=== PATIENT | female | born 1980 | race Caucasian/White ===

== ENCOUNTER 2017-01-31 00:01 | Emergency (ER) | payer OTHER ==
--- NOTE | ~2017-01-31 | CR72 ---
[facility] A Service of [facility] RADIOLOGY TEXT RESULTS PATIENT: ELISE MURILLO LOCATION: [facility] : [birth year] UNIT #: [id number] AGE: [address]: Natalya Anderson APRN SEX: F ORDER DR: [id number] [facility] [address] [place], [place] [address] [id number] MR#: [id number] Acc #: [id number] NAME: ELISE MURILLO : 1980 SEX: F STUDY DATE/TIME: 01/31/2017 2:15 UNIT: [facility] ROOM: STUDY DESCRIPTION: CR Chest Single View Portable Attending Physician: Natalya Anderson A.P.R.N. Ordering Physician: Natalya Anderson A.P.R.N. Primary Care Physician: Primary Care Physician No MEDICAL IMAGING REPORT This report is preliminary unless electronic signature is present EXAM Portable chest HISTORY Chest pain, abdominal pain onset today. History of asthma. COMPARISON 01/08/2014 FINDINGS A single AP portable view of the chest shows both lungs to be clear. The heart is normal in size. The mediastinal contour is normal. No significant bone abnormalities are seen. IMPRESSION Normal portable chest. Dictated by... Jan Petersen M.D. THIS IS AN ELECTRONICALLY VERIFIED REPORT Jan Petersen M.D. at 01/31/2017 5:18 AM TIFFANIE/juan alberto TD: 01/31/2017 04:54 JOB #: [id number] MEDICAL IMAGING REPORT Page 1 of 1 COPY
--- NOTE | ~2017-01-31 | EKG ---
PATIENT: ELISE MURILLO UNIT #: [id number] Ventricular Rate: 128 BPM Atrial Rate: 128 BPM P-R Interval: 138 ms QRS Duration: 86 ms Q-T Interval: 308 ms QTC Calculation(Bezet): 449 ms P Goshen: 68 degrees Calculated R Goshen: 78 degrees Calculated T Goshen: 5 degrees Diagnosis Line: Sinus tachycardia Diagnosis Line: Minimal voltage criteria for LVH, may be normal Diagnosis Line: variant Diagnosis Line: Nonspecific ST abnormality Diagnosis Line: Abnormal ECG Diagnosis Line: No previous ECGs available Diagnosis Line: Confirmed by ZUNILDA MORENO MD ([id number]) on 01/31/2017 Diagnosis Line: 8:08:42 PM INTERPRETING MD: TIFFANIE HOLM
[~2017-01-31 00:01] MED LIST: ADVAIR 250-501 EACH INH; ALBUTEROL MININEB NEB; ALBUTEROL17 G1 IH; AMOXICILLIN500 M1 PO; BACTRIM DS TABL1 TA1 PO; CALCIUM 500 + D1 TAB PO; CERTAGEN PO; CLONIDINE HCL0.1 MG PO; DOXYCYCLINE150 MG PO; FEOSOL PO; FIORICET 50-321 EACH PO; FLEXERIL PO; FLEXERIL10 MG PO; FOLIC ACID1 MG PO; IBUPROFEN800 MG PO; KEFLEX PO; KEFLEX500 MG PO; KETOPROFEN PO; LIDOCAINE HC20 MG/M1 MM; LORTAB 10/500 T1 TAB PO; LORTAB 5/500 TA1 TA1 PO; LORTAB 7.5-5001 TAB PO; MOBIC PO; MULTI-VITAMIN1 EAC1 PO; NAPROXEN PO; PHENERGAN12.5 MG PO; PREDNISONE PO; PRENATAL VITAMI1 TA3 PO; PYRIDIUM PO; RISPERIDONE PO; ROBITUSSIN A-C-S1 ML PO; THIAMINE HCL100 M1 PO; TYLENOL #3 PO; TYLOX1 CAP 5/50 PO; VISTARIL PO; ZITHROMAX1 G/PKT PO; ZOLOFT PO; ZYPREXA PO
[2017-01-31 01:03] LABS: BASOPHIL# 0.1 X10e3 (0-0.3); BASOPHIL% 0.4 % (0-2.5); EOSINOPHIL# 0.1 X10e3 (0-0.7); EOSINOPHIL% 0.3 % (0.0-7.0); HEMATOCRIT 50.1 % (35.0-45.0); HEMOGLOBIN 16.8 gm/dL (12.0-16.0); LYMPHOCYTE# 1.2 X10e3 (1.0-3.5); LYMPHOCYTE% 6.5 % (17.0-45.0); MEAN CELL VOLUME 93.3 FL (83-96); MEAN CORPUSCULAR HEMOGLOBIN 31.2 PG (28-34); MEAN CORPUSCULAR HGB CONC 33.4 g/dL (30-36); MEAN PLATELET VOLUME 8.8 FL (6.5-11.5); MONOCYTE# 1.6 X10e3 (0-1.0); MONOCYTE% 9.2 % (3.0-12.0); NEUTROPHIL# 14.9 X10e3 (1.5-7.1); NEUTROPHIL% 83.6 % (40-75); PLATELET COUNT 286 X10e3 (140-420); RED BLOOD COUNT 5.37 X10e (3.90-5.30); RED CELL DISTRIBUTION WIDTH 12.9 % (11.0-15.5); WHITE BLOOD COUNT 17.8 X10e3 (4.0-10.5)
[2017-01-31 01:07] LABS: DIFF IND YES
[2017-01-31 01:25] LABS: ALBUMIN SERUM 5.3 g/dL (3.5-5.0); ALKALINE PHOSPHATASE 54 U/L (32-92); ALT (SGPT) 198 U/L (10-40); AMYLASE 8 U/L (0-46); AST (SGOT) 146 U/L (10-42); BILIRUBIN, DIRECT 0.2 mg/dL (0.0-0.2); BILIRUBIN,INDIRECT 0.8 mg/dL (0.0-0.9); BLOOD UREA NITROGEN 16 mg/dL (9-23); CALCIUM SERUM 9.6 mg/dL (8.4-10.2); CARBON DIOXIDE 24 mmol/L (22-31); CHLORIDE 106 mmol/L (100-111); CPK (CREATINE PHOSPHOKINASE) 796 IU/L (26-140); CREATININE SERUM 1.3 mg/dL (0.6-1.4); GLOM FILT RATE Estimated 53.1 mL/min (>60); GLUCOSE FASTING 135 mg/dL (70-110); LIPASE 11 U/L (22-51); PROTEIN TOTAL SERUM 8.9 g/dL (6.0-8.3); SODIUM 143 mmol/L (135-145)
[2017-01-31 01:26] LABS: PLATELET ESTIMATE NORMAL (NORMAL)
[2017-01-31 01:27] LABS: ALCOHOL BLOOD <5 mg/dL (0); POTASSIUM 2.7 mmol/L (3.5-5.1)
[2017-01-31 01:59] LABS: POC - CKMB 10.9 ng/mL (0.0-7.9); POC - TROPONIN <0.05 ng/mL (<=0.05)
[2017-01-31 02:14] LABS: URINE SOURCE CLEAN CATCH
[2017-01-31 02:16] LABS: URINE APPEARANCE TURBID; URINE BLOOD 1+ (NEG); URINE COLOR DK YELLOW; URINE GLUCOSE NEG (NEG); URINE KETONE 2+ (NEG); URINE LEUKOCYTE ESTERASE NEG (NEG); URINE NITRATE NEG (NEG); URINE PROTEIN 2+ (NEG)
[2017-01-31 02:18] LABS: CULTURE INDICATED? YES; URINE BACTERIA AUWI NEG (NEGATIVE); URINE SQUAMOUS EPITHELIAL CELL MANY /[HPF]; UWBCS1 AUWI 25-50 (0-5)
[2017-01-31 02:31] LABS: U HYALINE CASTS AUWI 50-100 /[LPF]; URINE BILIRUBIN NEG (NEG)
[2017-01-31 02:33] LABS: URINE RED BLOOD CELL CAST 0-2 /[HPF]
[2017-01-31 02:39] LABS: AMPHETAMINE POS (NEG); BARBITURATES NEG (NEG); BENZODIAZEPINES NEG (NEG); COCAINE NEG (NEG); MARIJUANA NEG (NEG); OPIATES NEG (NEG); TRICYCLIC ANTIDEPRESSANTS NEG (NEG); U METHADONE NEG (NEG)
[2017-01-31 02:44] LABS: POC - CKMB 6.5 ng/mL (0.0-7.9); POC - TROPONIN <0.05 ng/mL (<=0.05)
== END 2017-01-31 08:16 | disposition home or self-care (01) ==
LOC: CED 00:01
PROVIDERS: Nurse Practitioner
DX: E87.6 Hypokalemia (principal); F15.10 Other stimulant abuse, uncomplicated; J45.909 Unspecified asthma, uncomplicated; Z90.710 Acquired absence of both cervix and uterus; F17.210 Nicotine dependence, cigarettes, uncomplicated
CPT/HCPCS: 71010; 80048; 80076; 80307; 81003; 82150; 82550; 82553; 83690; 84484; 85025; 87086; 93005; 96361; 96374; 96375; 99284; G0480; J2060; J2405

== ENCOUNTER 2017-02-22 00:14 | Emergency (ER) | payer OTHER ==
[2017-02-22 01:07] LABS: URINE SOURCE CLEAN CATCH
[2017-02-22 01:09] LABS: URINE APPEARANCE CLOUDY; URINE COLOR DK YELLOW; URINE LEUKOCYTE ESTERASE 2+ (NEG); URINE NITRATE POS (NEG); URINE SPECIFIC GRAVITY 1.027 (1.003-1.035)
[2017-02-22 01:10] LABS: URINE BILIRUBIN NEG (NEG); URINE GLUCOSE NEG (NEG); URINE KETONE TRACE (NEG); URINE PROTEIN 1+ (NEG)
[2017-02-22 01:11] LABS: URINE BLOOD NEG (NEG); URINE ICTOTEST NEG (NEG)
[2017-02-22 01:12] LABS: CULTURE INDICATED? YES; URINE BACTERIA AUWI 4+ (NEGATIVE); UWBCS1 AUWI 50-100 (0-5)
[2017-02-22 01:13] LABS: URINE SQUAMOUS EPITHELIAL CELL MANY /[HPF]
== END 2017-02-22 02:20 | disposition home or self-care (01) ==
LOC: CED 00:14
DX: N39.0 Urinary tract infection, site not specified (principal); Z79.899 Other long term (current) drug therapy
CPT/HCPCS: 81003; 87086; 87088; 87186; 99282; 99283

== ENCOUNTER 2017-03-27 09:42 | Inpatient (IN) | payer OTHER ==
--- NOTE | ~2017-03-27 | PN ---
Unit #: [id number] #: [id number] Patient: ELISE MURILLO [id number] [facility] [address] [place] [address] [id number] I MR#: [id number] NAME: ELISE MURILLO. ROOM: [facility] Age: 36 Sex: F Admission Date: 03/27/2017 : 1980 Attending Physician: Josefina Staples M.D. Admitting Physician: Josefina Staples M.D. Primary Care Physician: Juan Miguel Moses PROGRESS NOTES DATE 03/31/2017 DISCUSSION Ms. Murillo is a 36-year-old white female who was seen today and chart was reviewed and case was discussed with the staff. She has been anxious, withdrawn, depressed and rather seclusive to herself and has not been opening up socializing or interacting very much. Meanwhile, she has been taking the medications and tolerating them fairly well with no reported side effects. MENTAL STATUS EXAMINATION Young white female who was casually dressed with fair personal hygiene, appears to be in no acute distress or discomfort. She was awake and alert on interaction with intact orientation. Her mood was anxious with congruent affect. She denies any suicidal or homicidal ideations. Her insight and judgement remains slightly impaired. TREATMENT PLAN 1. We will continue her on her current medications and treatment protocol. We will monitor her response to the medication and make further adjustments as needed. 2. We will continue to follow up. Dictated by... Juan Miguel Saldana/kathy TD: 04/01/2017 03:50 JOB #: [id number] Unit #: [id number] #: [id number] Patient: ELISE MURILLO CARLIIZZY PROGRESS NOTES Page 1 of 1 X Josefina Staples MD PROGRESS NOTE
--- NOTE | ~2017-03-27 | DS ---
Unit #: [id number] #: [id number] Patient: ELISE MURILLO [id number] [facility] [address] [place] [address] [id number] I MR#: [id number] NAME: ELISE MURILLO. ROOM: P177 Age: 36 Sex: F Admission Date: 03/27/2017 : 1980 Discharge Date: 04/01/2017 Attending Physician: Josefina Staples M.D. Primary Care Physician: Katia Lucero M.D. DISCHARGE SUMMARY IDENTIFYING DATA Ms. Velazco is a 36-year-old white female who is a resident of [place], [place] and was brought to the hospital accompanied by her ex-. DISCHARGE DIAGNOSES Psychiatric: Major depressive disorder, recurrent, moderate, without psychotic features; alcohol abuse, moderate. Medical: Hepatitis C, history of nonactive of methicillin-resistant Staphylococcus aureus, and asthma. Stressors: Mild psychosocial stressors. HISTORY OF PRESENT ILLNESS Please see initial psychiatric evaluation for details. PAST PSYCHIATRIC HISTORY Please see initial psychiatric evaluation for details. PAST MEDICAL HISTORY Please see initial psychiatric evaluation for details. HOSPITAL COURSE The patient [facility] and was oriented to the hospital environment. Routine p.r.n. medications were initiated, and she was started back on her home medications. Medications were adjusted and detox protocol was initiated, and she was also started on alcohol detox protocol, and Effexor and BuSpar were initiated to help with depressive symptoms and she was closely monitored. She was taking the medications regularly and was tolerating them fairly well and was able to show a decent therapeutic response with improvement in depression and anxiety, and as such, it was decided that she will be discharged home and will continue treatment on an outpatient basis. DISCHARGE MEDICATIONS Effexor XR 75 mg a day for depression and BuSpar 10 mg b.i.d. for anxiety. DISCHARGE CONDITION Stable. PROGNOSIS Fair. Unit #: [id number] #: [id number] Patient: ELISE MURILLO Dictated by... Josefina Staples M.D. IAA/modl TD: 04/01/2017 06:54 JOB #: [id number] DISCHARGE SUMMARY Page 1 of 1 X Josefina Satples MD DISCHARGE SUMMARY
--- NOTE | ~2017-03-27 | PA ---
Unit #: [id number] #: [id number] Patient: ELISE MURILLO [id number] [facility] [address] [place] [address] [id number] I MR#: [id number] NAME: ELISE MURILLO. ROOM: P177 Age: 36 Sex: F Admission Date: 03/27/2017 : 1980 Date of Assessment: Attending Physician: Josefina Staples M.D. Admitting Physician: Josefina Staples M.D. Primary Care Physician: Katia Lucero M.D. PSYCHIATRIC ASSESSMENT DATE OF SERVICE 03/27/2017. IDENTIFYING DATA Ms. Murillo is a 36-year-old, , white female, who is a resident of [place], [place] and was brought to the hospital accompanied by her ex-. CHIEF COMPLAINT "I'm not just depressed, I'm missing my kids." HISTORY OF PRESENT ILLNESS Ms. Murillo is a 36-year-old white female, who was brought to the hospital accompanied by her ex-. Upon presentation, the patient reports increasing depression, anxiety, missing her children, feelings of hopelessness and "I've 7 kids, I'm homeless now, I sleep in my truck and I've had about 4-1/2 beers last night, which is about usual for me." The patient reports she receives disability check for her mental health issues and is homeless and has been homeless on and off for the last year and was living with an ex, but feels that she may lose that placement due to her drinking behavior. The patient reports significant grieving due to the loss of her children, not being able to get the custody and reports having 7 kids who are not in her custody and she is on a fixed income, has hepatitis C, and history of MRSA and has a lot of stressors leading to increasing depression, feelings of hopelessness and helplessness, and suicidal ideations. SUBSTANCE ABUSE HISTORY The patient reports history of alcohol, cannabis, cocaine, opioids, and methamphetamine abuse, and currently she reports alcohol to be her drug of choice. PAST PSYCHIATRIC HISTORY The patient reports history of inpatient chemical dependency [facility]. Review of the medical records indicate currently she is not active in any treatment program, is not seeing a psychiatrist, and not taking any psychotropic medications. PAST MEDICAL HISTORY Significant for hepatitis C, asthma, nonactive MRSA. ALLERGIES No known medication allergies. Unit #: [id number] #: [id number] Patient: ELISE MURILLO PERSONAL AND SOCIAL HISTORY A 36-year-old white female, who reports that she is , unemployed and essentially homeless and has poor social support system. MENTAL STATUS EXAMINATION Young white female, who was casually dressed with fair personal hygiene, appears to be in no acute distress or discomfort. She was awake and alert on interaction with intact orientation. Her mood was anxious and depressed with a congruent affect. Her speech was slow and restricted in content. Her thought processes were disorganized with some looseness of associations and flight of ideas and suicidal ideations. Her insight and judgment remain significantly impaired. DIAGNOSTIC IMPRESSION Psychiatric: Major depressive disorder, recurrent, moderate, without psychotic features; alcohol abuse, moderate. Medical: Hepatitis C, history of nonactive methicillin-resistant Staphylococcus aureus, asthma. Stressors: Moderate psychosocial stressors. TREATMENT PLAN 1. The patient has presented with a history of mood disorder and substance abuse and has been decompensating and will need inpatient hospitalization for detoxification, safety, and stabilization. We will start her back on her home medications and we will monitor response and make further adjustments as needed. 2. Supportive therapy was provided to the patient. 3. Safe, structured, and nourishing environment will be provided. ESTIMATED LENGTH OF STAY 4 to 5 days. ABILITY TO HELP SELF Limited. WILLINGNESS TO HELP SELF The patient appears to be willing to help self. STRENGTHS 1. Communicative. 2. Cooperative. PROBLEMS 1. Chronic dysphoric symptoms. 2. Chronic chemical dependency. 3. Poor social support system. DISCHARGE CRITERIA This will be contingent upon the patient's ability to go through detox without having any significant withdrawal symptoms and her ability to stay safe to herself, particularly after discharge from the hospital. Dictated by... Unit #: [id number] #: [id number] Patient: ELISE MURILLO Juan Miguel Saldana/geovany TD: 03/28/2017 08:15 JOB #: [id number] PSYCHIATRIC ASSESSMENT Page 1 of 1 X Josefina Staples MD PSYCHIATRIC ASSESSMENT
--- NOTE | ~2017-03-27 | PN ---
Unit #: [id number] #: [id number] Patient: ELISE MURILLO [id number] [facility] [address] [place] [address] [id number] MR#: [id number] NAME: ELISE MURILLO. ROOM: [facility] Age: 36 Sex: F Admission Date: 03/27/2017 : 1980 Attending Physician: Josefina Staples M.D. Admitting Physician: Josefina Staples M.D. Primary Care Physician: Juan Miguel Moses PROGRESS NOTES DATE 03/29/2017 DISCUSSION Ms. Murillo is a 56-year-old white female with substance abuse and mood disorder who was seen today and chart was reviewed and case was discussed with the staff. She has been anxious, withdrawn and rather seclusive to herself. Meanwhile, she has been cooperative with treatment recommendations as she has been taking the medications and tolerating them fairly well with no reported side effects. MENTAL STATUS EXAMINATION Young white female who was casually dressed with fair personal hygiene, appears to be in acute distress or discomfort. She was awake and alert with impaired attention and concentration. Her mood was anxious with congruent affect. She denies any suicidal or homicidal ideations. Her insight and judgement remains slightly impaired. TREATMENT PLAN 1. We will continue her on her current medications and treatment protocol. We will monitor her response to the medication and make further adjustments as needed. 2. We will continue to follow up. Dictated by... Juan Miguel Saldana/kathy TD: 03/30/2017 02:02 JOB #: [id number] Unit #: [id number] #: [id number] Patient: ELISE MURILLO OLEG PROGRESS NOTES Page 1 of 1 X Josefina Staples MD PROGRESS NOTE
--- NOTE | ~2017-03-27 | PN ---
Unit #: [id number] #: [id number] Patient: ELISE MURILLO [id number] [facility] [address] [place] [address] [id number] MR#: [id number] NAME: ELISE MURILLO. ROOM: [facility] Age: 36 Sex: F Admission Date: 03/27/2017 : 1980 Attending Physician: Josefina Staples M.D. Admitting Physician: Josefina Staples M.D. Primary Care Physician: Juan Miguel Moses PROGRESS NOTES DATE 03/30/2017 HISTORY Ms. Murillo is a 36-year-old white female, who was seen today and chart was reviewed, and case was discussed with the staff. She has been anxious, withdrawn and seclusive to herself. Meanwhile, she has been cooperative with treatment recommendations and has been taking medications and tolerating them fairly well with no reported side effects. MENTAL STATUS EXAMINATION Young white female with fair personal hygiene, appears to be in no acute distress. She was awake and alert on interaction with intact orientation. Her mood is anxious with a congruent affect. Her speech is slow and goal directed. The patient denies any suicidal or homicidal ideation and also denies any auditory or visual hallucination. Her insight and judgment remain slightly impaired. TREATMENT PLAN 1. We will continue on current medications and treatment protocol. We will monitor her response to medications and make further adjustments as need. 2. We will continue to follow up. Dictated by... Juan Miguel Saldana/geovany TD: 03/30/2017 11:38 JOB #: [id number] Unit #: [id number] #: [id number] Patient: ELISE MURILLO PROGRESS NOTES Page 1 of 1 X Josefina Staples MD PROGRESS NOTE
--- NOTE | ~2017-03-27 | HP ---
Unit #: [id number] #: [id number] Patient: DEBBIE MURILLO [id number] [place] [address] [id number] I MR#: [id number] NAME: DEBBIE MURILLO. ROOM: 77 Age: 36 Sex: F Admission Date: 03/27/2017 : 1980 Attending Physician: Josefina Staples M.D. Admitting Physician: Josefina Staples M.D. Primary Care Physician: Katia Lucero M.D. HISTORY AND PHYSICAL HISTORY OF PRESENT ILLNESS Debbie is a 36 year old admitted to [facility] because of her abuse of alcohol. She has had other admissions to this facility for the same. PAST MEDICAL HISTORY 1. Long history of alcohol abuse. 2. History of illicit substance abuse to include cocaine, heroin and methamphetamine. She also reports a history of IV drug use. 3. Asthma. 4. Hepatitis C. PAST SURGICAL HISTORY Hysterectomy. ALLERGIES No known drug allergies. SOCIAL HISTORY Smokes one-half pack per day. Drinks at least 12 beers on a daily basis and admits to a long history of illicit substance abuse to include IV drugs. Most recently she has been smoking crack cocaine. FAMILY HISTORY Medically noncontributory. REVIEW OF SYSTEMS CONSTITUTIONAL: No fever or chills. HEENT: Denies any sore throat, ear pain or runny nose. CARDIOVASCULAR: Denies chest pain, irregular heart rhythm or palpitations. CHEST: Denies shortness of breath or cough. No hemoptysis. GASTROINTESTINAL: Denies nausea, vomiting, diarrhea or chronic constipation. ENDOCRINE: Denies history of increased thirst or urination. No recent significant weight loss or gain. GENITOURINARY: Denies dysuria, frequency, or hematuria. SKIN: Denies any rashes. HEMATOLOGIC: Denies history of increased bleeding or bruising. MUSCULOSKELETAL: Denies any hot, swollen joints. No generalized muscle pain. NEUROLOGIC: Denies problems with vision or speech. No frequent, severe headaches. No numbness, tingling or weakness in any extremities. Denies loss of bladder or bowel control. Unit #: [id number] #: [id number] Patient: DEBBIE MURILLO CURRENT MEDICATIONS No orders received at the time of this dictation. PHYSICAL EXAMINATION GENERAL: Alert, well-nourished, in no apparent distress. VITAL SIGNS: Blood pressure 116/74, heart rate 80, respirations 16, temperature 98.6. WEIGHT: 133 pounds. HEIGHT: 5'9". SKIN: Warm and dry without rash or lesion. HEENT: Normocephalic. TMs not viewed. Oral and nasal passages clear. Conjunctivae clear. Pupils equal, round and reactive to light and accommodation. Extraocular movements intact. NECK: Supple without lymphadenopathy or thyromegaly. HEART: Regular rate and rhythm without murmur. LUNGS: Clear. ABDOMEN: Soft, nontender. : Not done. EXTREMITIES: No evidence of cyanosis, clubbing or edema. Moves all extremities without focal deficit. NEUROLOGICAL: Grossly within normal limits. Cranial Nerves: II: Visual bo are intact. III, IV AND : Extraocular movements are intact. Pupils are equal, round and reactive to light. V: Facial sensation is grossly normal. VII: Facial movements and expression are normal. VIII: Auditory acuity grossly intact. IX, X: Uvula is midline. Phonation is normal. XI: Patient shrugs shoulders and turns head normally. XII: Tongue protrudes in the midline. Sensory and Motor Function: Sensory and motor sensation is grossly normal. Motor: moves all extremities well. Coordination: Gait is normal. Deep Tendon Reflexes: Intact. IMPRESSION Psychiatric admission RECOMMENDATIONS PSYCHIATRIC: Per psychiatrist. MEDICAL: I see no contraindications to participating in facility's activities. MEDICAL PROGNOSIS Good. MEDICAL CONDITION Stable. Dictated by... Natalya Washburn P.A.-C. for Juan Miguel Bui Unit #: [id number] #: [id number] Patient: DEBBIE MURILLO TD: 03/27/2017 21:29 JOB #: [id number] HISTORY AND PHYSICAL Page 1 of 1 X Natalya Washburn X HISTORY AND PHYSICAL
--- NOTE | ~2017-03-27 | PN ---
Unit #: [id number] #: [id number] Patient: ELISE MURILLO [id number] [facility] [address] [place] [address] [id number] I MR#: [id number] NAME: ELISE MURILLO ROOM: [facility] Age: 36 Sex: F Admission Date: 03/27/2017 : 1980 Attending Physician: Josefina Staples M.D. Admitting Physician: Josefina Staples M.D. Primary Care Physician: Juan Miguel Moses PROGRESS NOTES DATE March 28, 2017 DISCUSSION Ms. Murillo is a 10-year-old white female, who was seen today and chart was reviewed and the case was discussed with the staff. She appears to be anxious, withdrawn, and seclusive to herself, and in some distress and discomfort. She is minimally interacting. She has been taking the medications and tolerating them fairly well with no reported side effects. MENTAL STATUS EXAMINATION Young white female, who was casually dressed with fair personal hygiene and appears to be in slight distress and discomfort. She was awake and alert with impaired attention and concentration. Her mood is anxious with a congruent affect. The patient denies any suicidal or homicidal ideations. Her insight and judgment remain slightly impaired. TREATMENT PLAN 1. We will continue her on her current medications and treatment protocol, and will adjust the medications and monitor the response. 2. We will continue to followup. Dictated by... Juan Miguel Saldana/mitali TD: 03/28/2017 08:52 JOB #: [id number] [facility] PROGRESS NOTES Page 1 of 1 X Josefina Staples MD PROGRESS NOTE
[2017-03-28 09:33] LABS: BASOPHIL# 0.1 X10e3 (0-0.3); EOSINOPHIL# 0.4 X10e3 (0-0.7); EOSINOPHIL% 6.6 % (0.0-7.0); HEMATOCRIT 43.6 % (35.0-45.0); HEMOGLOBIN 14.5 gm/dL (12.0-16.0); LYMPHOCYTE# 1.1 X10e3 (1.0-3.5); LYMPHOCYTE% 19.3 % (17.0-45.0); MEAN CELL VOLUME 96.1 FL (83-96); MEAN CORPUSCULAR HEMOGLOBIN 31.9 PG (28-34); MEAN CORPUSCULAR HGB CONC 33.2 g/dL (30-36); MEAN PLATELET VOLUME 8.6 FL (6.5-11.5); MONOCYTE# 0.4 X10e3 (0-1.0); MONOCYTE% 7.8 % (3.0-12.0); NEUTROPHIL# 3.7 X10e3 (1.5-7.1); NEUTROPHIL% 65.3 % (40-75); PLATELET COUNT 216 X10e3 (140-420); RED BLOOD COUNT 4.54 X10e (3.90-5.30); RED CELL DISTRIBUTION WIDTH 13.2 % (11.0-15.5); WHITE BLOOD COUNT 5.7 X10e3 (4.0-10.5)
[2017-03-28 09:34] LABS: DIFF IND NO
[2017-03-28 09:35] LABS: URINE APPEARANCE TURBID; URINE BLOOD NEG (NEG); URINE COLOR ORANGE; URINE GLUCOSE NEG (NEG); URINE KETONE NEG (NEG); URINE LEUKOCYTE ESTERASE 1+ (NEG); URINE NITRATE POS (NEG); URINE PROTEIN 1+ (NEG); URINE SPECIFIC GRAVITY 1.027 (1.003-1.035)
[2017-03-28 09:38] LABS: URBCS1 AUWI 0-2 /[HPF] (0-2); URINE BACTERIA AUWI 1+ (NEGATIVE); URINE SQUAMOUS EPITHELIAL CELL MOD /[HPF]
[2017-03-28 09:58] LABS: ALBUMIN SERUM 3.7 g/dL (3.5-5.0); BILIRUBIN,TOTAL 1.4 mg/dL (0.2-2.0); CALCIUM SERUM 9.1 mg/dL (8.4-10.2); CREATININE SERUM 0.5 mg/dL (0.6-1.4); GLOM FILT RATE Estimated 125.4 mL/min (>60); POTASSIUM 3.8 mmol/L (3.5-5.1); PROTEIN TOTAL SERUM 6.4 g/dL (6.0-8.3)
[2017-03-28 10:02] LABS: URINE BILIRUBIN NEG (NEG)
[2017-03-28 10:03] LABS: U HYALINE CASTS AUWI 0-2 /[LPF]; URINE AMORPHOUS SEDIMENT AMORP URATES; URINE CRYSTALS CALCIUM OXALATE /[HPF]; URINE MUCUS PRESENT
[2017-03-28 10:42] LABS: AMPHETAMINE POS (NEG); BARBITURATES NEG (NEG); BENZODIAZEPINES NEG (NEG); COCAINE POS (NEG); MARIJUANA NEG (NEG); OPIATES NEG (NEG); TRICYCLIC ANTIDEPRESSANTS NEG (NEG); U METHADONE NEG (NEG)
== END 2017-04-01 09:54 | DRG 885 ==
LOC: P1E 12:40 → POF 12:40 → P1E 16:07
PROVIDERS: Psychiatry & Neurology Psychiatry
DX: F33.1 Major depressive disorder, recurrent, moderate (principal); R45.851 Suicidal ideations; F10.20 Alcohol dependence, uncomplicated; J45.909 Unspecified asthma, uncomplicated; Z86.14 Personal history of Methicillin resistant Staphylococcus aureus infection; Z59.0 Homelessness; B19.20 Unspecified viral hepatitis C without hepatic coma; F17.210 Nicotine dependence, cigarettes, uncomplicated; Z90.710 Acquired absence of both cervix and uterus
CPT/HCPCS: 80053; 80307; 81003; 85025; 86592

== ENCOUNTER 2017-04-15 08:13 | Emergency (ER) | payer OTHER ==
[~2017-04-15] VITALS: Ht 175.3 cm; Wt 60.3 kg
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
== END 2017-04-15 10:00 | disposition home or self-care (01) ==
LOC: CED 08:13
DX: S20.211A Contusion of right front wall of thorax, initial encounter (principal); J45.909 Unspecified asthma, uncomplicated; F17.210 Nicotine dependence, cigarettes, uncomplicated; X58.XXXA Exposure to other specified factors, initial encounter
CPT/HCPCS: 71020; 99285

== ENCOUNTER 2017-05-18 21:26 | Emergency (ER) | payer OTHER ==
[~2017-05-18] VITALS: Ht 175.3 cm; Wt 68.0 kg
== END 2017-05-18 23:40 | disposition home or self-care (01) ==
LOC: CED 21:26 → CFTX 21:26 → CED 22:48 → CFTX 22:48
DX: S49.92XA Unspecified injury of left shoulder and upper arm, initial encounter (principal); F17.210 Nicotine dependence, cigarettes, uncomplicated; J45.909 Unspecified asthma, uncomplicated; F32.9 Major depressive disorder, single episode, unspecified; Y04.0XXA Assault by unarmed brawl or fight, initial encounter; Y92.410 Unspecified street and highway as the place of occurrence of the external cause
CPT/HCPCS: 84703; 99283